=== PATIENT | male | born 1985 | race African-American/Black ===

== ENCOUNTER → 2021-12-03 | Day surgery (SDC) | payer OTHER ==
[~2021-12-03] VITALS: Ht 144.8 cm; Wt 86.2 kg
[~2021-12-03] MED LIST: AMLODIPINE-BEN1 EAC3 PO; BUPROPION XL150 MG PO; BUSPIRONE HCL15 M1 PO; ESCITALOPRAM OX20 MG PO; PREDNISONE 20MG20 MG PO; SUCRALFATE1 GM PO; SYMBICORT 80-10.2 GM INH; VENTOLIN HFA IN18 GM INH; ZPAK PO
== END | disposition home or self-care (01) ==
LOC: FAS 09:18
DX: K29.50 Unspecified chronic gastritis without bleeding (principal); B96.81 Helicobacter pylori [H. pylori] as the cause of diseases classified elsewhere; K29.80 Duodenitis without bleeding; R15.2 Fecal urgency; R63.4 Abnormal weight loss; I10 Essential (primary) hypertension; J45.909 Unspecified asthma, uncomplicated; F41.9 Anxiety disorder, unspecified; F32.A Depression, unspecified; Z68.42 Body mass index [BMI] 45.0-49.9, adult; Z79.899 Other long term (current) drug therapy; Z88.8 Allergy status to other drugs, medicaments and biological substances; Z72.89 Other problems related to lifestyle
CPT/HCPCS: J2704; J7120